=== PATIENT | female | born 1995 | race Two or more races ===

== ENCOUNTER 2024-04-25 13:45 | Inpatient (IN) | payer OTHER ==
[~2024-04-25] VITALS: Ht 152.4 cm; Wt 2.7 kg
[2024-04-25 14:04] VITALS: BP 117/77
[2024-04-25] MEDS ORDERED: MISOPROSTOL 25 MCG/4 ML GEL.W.APPL VAG NR (14:45)
[2024-04-25] MEDS ORDERED: MISOPROSTOL 50 MCG TABLET VAG ONE (15:15)
[2024-04-25 15:22] VITALS: BP 121/76
[2024-04-25] MEDS ORDERED: DESMOPRESSIN ACETATE 4 MCG/ML AMPUL IV NR (15:30)
[2024-04-25 16:12] LABS: URINE APPEARANCE Clear; URINE BILIRRUBIN Negative (NEGATIVE); URINE BLOOD Negative; URINE COLOR Yellow; URINE GLUCOSE Negative (NEGATIVE); URINE KETONE Negative (NEGATIVE); URINE LEUKOCYTE Negative; URINE NITRATE Negative; URINE PROTEIN Negative (NEGATIVE); URINE UROBILINOGEN 0.2 E.U./dl
[2024-04-25 16:15] LABS: HEMATOCRIT 36.6 % (36.0-45.00); HEMOGLOBIN 12.4 g/dL (12.0-15.00); MEAN CELL VOLUME 85.5 fL (80.00-100.00); MEAN CORPUSCULAR HGB CONC 33.9 g/dl (32.0-36.0); PLATELET COUNT 193 K/uL (150-450); RED BLOOD COUNT 4.28 M/uL (4.00-6.00); RED CELL DISTRIBUTION WIDTH 14.8 % (11.5-14.5)
[2024-04-25 16:16] LABS: URINE BACTERIA 4047.7 uL (0.0-1933); URINE EPITHELIAL CELLS 31.4 uL (0.0-38.8); URINE RBC 5.7 uL (0.0-20.8); URINE WBC 59.5 uL (0.0-23.2)
[2024-04-25 16:24] LABS: URINE CAST 0.58 uL (0.0-1.40)
[2024-04-25 16:40] LABS: INR < 0.93; PARTIAL THROMBOPLASTIN TIME 26.8 SECONDS (22.0-34.0); PROTHROMBIN TIME 9.9 SECONDS (9.0-11.5)
[2024-04-25 16:49] LABS: ALBUMIN 2.9 gm/dL (3.4-5.0); BILIRUBIN TOTAL 0.38 mg/dL (0.3-1.2); CREATININE SERUM 0.5 mg/dL (0.55-1.02); GFR 146.91; GLOBULINA 3.3 G/DL (2.4-3.5); POTASSIUM 4.11 mEq/L (3.5-5.1); TOTAL PROTEIN 6.2 gm/dL (6.4-8.2)
[2024-04-25 19:31] VITALS: BP 95/60
[2024-04-25 23:12] VITALS: BP 121/71
[2024-04-26 03:49] VITALS: BP 120/79
[2024-04-26] MEDS ORDERED: PATIENTS OWN MEDICATION (MEDICAMENTO EN PISO NEVERA) IV NR (07:00)
[2024-04-26] MEDS ORDERED: DESMOPRESSIN ACETATE 4 MCG/ML AMPUL IV NR (07:00)
[2024-04-26 07:20] VITALS: BP 118/68
[2024-04-26] MEDS ORDERED: OXYTOCIN 20 UNITS/500ML RL PIGGYBAG IV ONE (08:00)
[2024-04-26] MEDS ORDERED: OXYTOCIN 500 ML IV SCH (08:15)
[2024-04-26 11:14] VITALS: BP 118/71
[2024-04-26] MEDS ORDERED: OXYTOCIN 10 UNITS/ML VIAL ONE ×2 (14:05→17:53)
[2024-04-26] MEDS ORDERED: ERYTHROMYCIN BASE OPHT 1GM EACH TUBE OP ONE ×2 (14:05→15:00)
[2024-04-26] MEDS ORDERED: PATIENTS OWN MEDICATION (MEDICAMENTO EN PISO NEVERA) ONE (14:14)
[2024-04-26] MEDS ORDERED: CEFAZOLIN SODIUM 1,000 MG VIAL IV NR (14:30)
[2024-04-26] MEDS ORDERED: OXYTOCIN 10 UNITS/ML VIAL IV ONE (15:00)
[2024-04-26] MEDS ORDERED: RINGERS SOLUTION,LACTATED 1,000 ML IV SCH (15:30)
[2024-04-26] MEDS ORDERED: CHLORHEXIDINE GLUCONATE 120 ML BOTTLE TOP SCH (15:30)
[2024-04-26] MEDS ORDERED: OXYTOCIN 1,000 ML IV SCH (15:30)
[2024-04-26] MEDS ORDERED: MEPERIDINE HCL/PF 25 MG/ML VIAL IV PRN (15:30)
[2024-04-26] MEDS ORDERED: ONDANSETRON HCL 2 MG/ML VIAL IV PRN (15:30)
[2024-04-26] MEDS ORDERED: PROMETHAZINE HCL 25 MG/ML AMPUL IV PRN (15:30)
[2024-04-26] MEDS ORDERED: FAMOTIDINE/PF 20 MG/2 ML VIAL IV SCH (17:00)
[2024-04-26] MEDS ORDERED: MORPHINE SULFATE 4 MG/ML VIAL IV ONE (17:00)
[2024-04-26] MEDS ORDERED: FAMOTIDINE/PF 20 MG/2 ML VIAL ONE (17:54)
[2024-04-26 18:10] VITALS: BP 128/72
[2024-04-26 19:53] LABS: HEMATOCRIT 35.9 % (36.0-45.00); HEMOGLOBIN 12.4 g/dL (12.0-15.00); MEAN CELL VOLUME 84.2 fL (80.00-100.00); MEAN CORPUSCULAR HGB CONC 34.5 g/dl (32.0-36.0); PLATELET COUNT 176 K/uL (150-450); RED BLOOD COUNT 4.27 M/uL (4.00-6.00); RED CELL DISTRIBUTION WIDTH 14.4 % (11.5-14.5)
[2024-04-26] MEDS ORDERED: CEFAZOLIN SODIUM 1,000 MG VIAL IV SCH (21:00)
[2024-04-27] MEDS ORDERED: ACETAMINOPHEN 500 MG GEL..CAP PO PRN
[2024-04-27 00:30] VITALS: BP 112/67
[2024-04-27 08:44] VITALS: BP 119/75
[2024-04-27] MEDS ORDERED: DOCUSATE SODIUM 100MG CAP PO SCH (09:00)
[2024-04-27] MEDS ORDERED: SIMETHICONE 125 MG CAPSULE PO SCH (09:00)
[2024-04-27] MEDS ORDERED: OxyCODONE HCL/APAP UD (PERCOCET) PO PRN (09:00)
[2024-04-27 16:00] VITALS: BP 110/74
[2024-04-28 01:44] VITALS: BP 103/70; O2SAT 100
[2024-04-28 08:24] VITALS: BP 114/76
[2024-04-28 13:56] VITALS: BP 109/72
== END 2024-04-28 15:29 | disposition home or self-care (01) | DRG 787 ==
LOC: LDR 13:45 → OB/GYN 13:45 → LDR 13:56 → OB/GYN 04-26 10:25
PROVIDERS: ADMIT General Practice; ATTEND General Practice
PROC: 3E0P7VZ Introduction of Hormone into Female Reproductive, Via Natural or Artificial Opening (ICD-10-PCS; 2024-04-25)
PROC: 4A1HXCZ Monitoring of Products of Conception, Cardiac Rate, External Approach (ICD-10-PCS; 2024-04-25)
PROC: 3E033VJ Introduction of Other Hormone into Peripheral Vein, Percutaneous Approach (ICD-10-PCS; 2024-04-26)
PROC: 10D00Z1 Extraction of Products of Conception, Low, Open Approach (ICD-10-PCS; principal; 2024-04-26 14:15)
DX: O36.5930 Maternal care for other known or suspected poor fetal growth, third trimester, not applicable or unspecified (principal); D68.00 Von Willebrand disease, unspecified; O99.12 Other diseases of the blood and blood-forming organs and certain disorders involving the immune mechanism complicating childbirth; O36.8330 Maternal care for abnormalities of the fetal heart rate or rhythm, third trimester, not applicable or unspecified; Z3A.38 38 weeks gestation of pregnancy; Z37.0 Single live birth